=== PATIENT | female | born 1940 | race Caucasian/White ===

== ENCOUNTER 2017-03-22 14:28 | Inpatient (IN) ==
[2017-03-22] MEDS ORDERED: LEVOFLOXACIN INJ 750 MG in PREMIX 1 EACH IV STA (15:19)
[2017-03-22] MEDS ORDERED: FUROSEMIDE 100 MG/10 ML VIAL IV STA (15:19)
[2017-03-22] MEDS ORDERED: ONDANSETRON 4 MG/2 ML VIAL IV STA (15:19)
[2017-03-22] MEDS ORDERED: methylPREDNISolone SOD SUC 125 MG/2 ML VIAL IV STA (15:19)
[2017-03-22] MEDS ORDERED: ALBUTEROL 2.5 MG/3 ML NEB RESP TX SCH (15:30)
[2017-03-22] MEDS ORDERED: ALBUTEROL 2.5 MG/3 ML NEB RESP TX ONE (16:22)
[2017-03-22] MEDS ORDERED: LEVOFLOXACIN INJ 150 ML IV ONE (16:37)
[2017-03-22] MEDS ORDERED: ONDANSETRON 4 MG/2 ML VIAL ONE (16:37)
[2017-03-22] MEDS ORDERED: FUROSEMIDE 40 MG/4 ML VIAL ONE (16:37)
[2017-03-22] MEDS ORDERED: methylPREDNISolone SOD SUC 125 MG/2 ML VIAL ONE (16:38)
[2017-03-22 16:41] LABS: Apearance,Urine CLEAR (Clear); Bacteria,Urine Occasional /HPF (Few); Bilirubin,Urine Negative (Negative); Blood, Urine Negative (Negative); Glucose,Urine (UA) Negative (Negative); Ketones,Urine Negative (Negative); Mucus,Urine Occasional /LPF (Occasional); Nitrite,Urine Negative (Negative); Protein,Urine 30 MG/DL; RBC,Urine 1 /HPF (0-4); Urine Color Yellow (Yellow); Urine Specific Gravity 1.014 (1.001-1.035); Urine Urobilinogen < 2.0 EU/DL (0.2-1.0); WBC,Urine <1 /HPF (0-6)
[2017-03-22 17:33] LABS: Basophils % 0.3 % (0.0-0.8); Eosinophils # 0.1 10*3/uL (0.0-0.87); Eosinophils % 1.7 % (0.00-10.9); Hematocrit 31.9 VOL% (35.7-47.0); Hemoglobin 10.2 GM/DL (12.0-16.0); Immature Granulocytes % 0.5 %; Immature Granulocytes Absolute 0.03 #; Lymphocytes # 2.9 10*3/uL (1.4-4.0); Lymphocytes % 44.8 % (21.3-54.2); Mean Corpuscular Hemoglobin 30 PG (27-34); Mean Corpuscular Volume 95.2 FL (87-102); Mean Platelet Volume 11.4 FL (9.6-12.0); Monocytes # 0.3 10*3/uL (0.11-0.8); Monocytes % 4.7 % (1.7-12.7); Neutrophils # 3.1 10*3/uL (1.4-7.4); Platelet Count 158 T/CUMM (130-400); Red Blood Count 3.35 MC/CUMM (3.8-5.5); Red Cell Distribution Width 14.7 % (9.3-17.3); White Blood Count 6.4 T/CUMM (4-12)
[2017-03-22 17:44] LABS: PT Patient Result 10.8 SECS
[2017-03-22 17:49] LABS: Lactic Acid 1.6 MMOL/L (0.4-2.0)
[2017-03-22 17:50] LABS: Alanine Aminotransferase 24 U/L (13-56); Alkaline Phosphatase 101 U/L (45-117); Aspartate Amino Transferase 53 U/L (0-37); Bilirubin,Total < 0.39 MG/DL (0.2-1.0); Blood Urea Nitrogen 38 MG/DL (7-18); Calcium 7.2 MG/DL (8.5-10.1); Glucose 150 MG/DL (74-106); Osmolality,Calculated 284.8 MOS/KG (273-304); Potassium 2.9 MMOL/L (3.5-5.1); Sodium 137 MMOL/L (136-145); Total Protein 5.9 G/DL (6.4-8.3); Troponin I Only 0.022 NG/ML (0.00-0.045)
[2017-03-22 18:02] LABS: ABG Base Excess -8.5 MMOL/L (-2.5-2.5); ABG HCO3 15.2 MMOL/L (20-26); ABG Oxygen Saturation 97.1 % (95-100); ABG PCO2 26.3 MM HG (35-48); ABG PO2 93.8 MM HG (80-95)
[2017-03-22] MEDS ORDERED: GLUCAGON 1 MG VIAL IM PRN (18:40)
[2017-03-22] MEDS ORDERED: POTASSIUM CHLORIDE 20 MEQ TABLET PO STA (18:52)
[2017-03-22] MEDS ORDERED: ZALEPLON 5 MG CAPSULE PO PRN (19:35)
[2017-03-22] MEDS ORDERED: ONDANSETRON 4 MG/2 ML VIAL IV PRN (19:35)
[2017-03-22] MEDS ORDERED: POTASSIUM CHLORIDE 20 MEQ TABLET PO ONE (19:50)
[2017-03-22] MEDS ORDERED: INSULIN REGULAR 100 UNIT/ML ONE (21:06)
[2017-03-22] MEDS ORDERED: INSULIN REGULAR 100 UNIT/ML SUBCUT ONE (21:21)
[2017-03-22] MEDS ORDERED: ALBUTEROL 2.5 MG/3 ML NEB RESP TX PRN (22:35)
[2017-03-22] MEDS ORDERED: ACETAMINOPHEN 325 MG TABLET PO PRN (22:35)
[2017-03-22] MEDS: SODIUM CHLORIDE 0.9% 1,000 ML IV SCH (23:05)
[2017-03-23] MEDS: GABAPENTIN 100 MG CAPSULE PO SCH ×3 (01:52→21:28)
[2017-03-23] MEDS: MONTELUKAST 10 MG TABLET PO SCH ×2 (01:52→21:28)
[2017-03-23] MEDS: ZALEPLON 5 MG CAPSULE PO SCH ×2 (01:52→21:28)
[2017-03-23] MEDS: ALBUTEROL/IPRATROPIUM 3 ML NEB RESP TX SCH ×4 (05:10→20:53)
[2017-03-23 07:07] LABS: Basophils % 0.3 % (0.0-0.8); Hematocrit 31.1 VOL% (35.7-47.0); Hemoglobin 9.8 GM/DL (12.0-16.0); Immature Granulocytes % 0.8 %; Immature Granulocytes Absolute 0.03 #; Lymphocytes # 0.6 10*3/uL (1.4-4.0); Lymphocytes % 15.9 % (21.3-54.2); Mean Corpuscular HGB Conc 31.5 GM/DL (32-36); Mean Corpuscular Hemoglobin 30 PG (27-34); Mean Platelet Volume 11.6 FL (9.6-12.0); Monocytes # 0.1 10*3/uL (0.11-0.8); Monocytes % 2.4 % (1.7-12.7); Neutrophils % 80.6 % (38.7-73.9); Platelet Count 148 T/CUMM (130-400); Red Blood Count 3.31 MC/CUMM (3.8-5.5); Red Cell Distribution Width 14.7 % (9.3-17.3); White Blood Count 3.7 T/CUMM (4-12)
[2017-03-23 07:32] LABS: Calcium 7.7 MG/DL (8.5-10.1); Potassium 4.7 MMOL/L (3.5-5.1)
[2017-03-23] MEDS ORDERED: FUROSEMIDE 20 MG TABLET PO SCH (09:00)
[2017-03-23] MEDS ORDERED: CALCIUM (CITRATE) 200 MG TABLET PO SCH (09:00)
[2017-03-23] MEDS: CLINDAMYCIN INJ 600 MG in PREMIX 1 EACH IV SCH ×2 (10:03→17:34)
[2017-03-23] MEDS: ASPIRIN EC 81 MG TABLET PO SCH (10:03)
[2017-03-23] MEDS: amLODIPine 10 MG TABLET PO SCH (10:07)
[2017-03-23] MEDS: CLOPIDOGREL 75 MG TABLET PO SCH (10:07)
[2017-03-23] MEDS: CALCIUM (CARBONATE)/VITAMIN D 250 MG-125 UNIT TABLET PO SCH (10:07)
[2017-03-23] MEDS: CLORAZEPATE 3.75 MG TABLET PO SCH ×3 (10:08→21:28)
[2017-03-23] MEDS: CETIRIZINE 10 MG TABLET PO SCH (10:08)
[2017-03-23] MEDS: CILOSTAZOL 100 MG TABLET PO SCH (10:08)
[2017-03-23] MEDS: MECLIZINE 25 MG TABLET PO SCH (10:13)
[2017-03-23] MEDS: POTASSIUM CHLORIDE 10 MEQ TABLET PO SCH (10:14)
[2017-03-23] MEDS: PANTOPRAZOLE 40 MG TABLET PO SCH (10:14)
[2017-03-23] MEDS: SERTRALINE 100 MG TABLET PO SCH (10:15)
[2017-03-23] MEDS: hydrALAZINE 25 MG TABLET PO SCH (12:39)
[2017-03-23] MEDS: METOPROLOL SUCCINATE XL 50 MG TABLET PO SCH (12:40)
[2017-03-23] MEDS: SODIUM CHLORIDE 0.9% 1,000 ML IV SCH (15:44)
[2017-03-23] MEDS: SIMVASTATIN 20 MG TABLET PO SCH (18:21)
[2017-03-23] MEDS: LEVOFLOXACIN INJ 250 MG in PREMIX 1 EACH IV SCH (21:27)
[2017-03-24] MEDS: ALBUTEROL/IPRATROPIUM 3 ML NEB RESP TX SCH ×3 (01:16→13:17)
[2017-03-24] MEDS: CLINDAMYCIN INJ 600 MG in PREMIX 1 EACH IV SCH ×3 (02:10→17:14)
[2017-03-24] MEDS: ACETAMINOPHEN 325 MG TABLET PO PRN (04:19)
[2017-03-24] MEDS: MECLIZINE 25 MG TABLET PO SCH (09:31)
[2017-03-24] MEDS: ASPIRIN EC 81 MG TABLET PO SCH (09:32)
[2017-03-24] MEDS: POTASSIUM CHLORIDE 10 MEQ TABLET PO SCH (09:32)
[2017-03-24] MEDS: hydrALAZINE 25 MG TABLET PO SCH (09:32)
[2017-03-24] MEDS: GABAPENTIN 100 MG CAPSULE PO SCH ×2 (09:33→21:14)
[2017-03-24] MEDS: amLODIPine 10 MG TABLET PO SCH (09:33)
[2017-03-24] MEDS: CALCIUM (CARBONATE)/VITAMIN D 250 MG-125 UNIT TABLET PO SCH (09:33)
[2017-03-24] MEDS: CLOPIDOGREL 75 MG TABLET PO SCH (09:34)
[2017-03-24] MEDS: CILOSTAZOL 100 MG TABLET PO SCH (09:34)
[2017-03-24] MEDS: PANTOPRAZOLE 40 MG TABLET PO SCH (09:35)
[2017-03-24] MEDS: SERTRALINE 100 MG TABLET PO SCH (09:36)
[2017-03-24] MEDS: CLORAZEPATE 3.75 MG TABLET PO SCH ×3 (09:36→21:14)
[2017-03-24] MEDS: CETIRIZINE 10 MG TABLET PO SCH (09:36)
[2017-03-24 09:47] LABS: Calcium 7.7 MG/DL (8.5-10.1); Osmolality,Calculated 289.5 MOS/KG (273-304); Potassium 4.2 MMOL/L (3.5-5.1)
[2017-03-24] MEDS: METOPROLOL SUCCINATE XL 50 MG TABLET PO SCH (12:48)
[2017-03-24] MEDS ORDERED: LEVALBUTEROL 1.25 MG/3 ML NEB RESP TX PRN (16:21)
[2017-03-24] MEDS ORDERED: MAGNESIUM SULF RIDER 2 GM in PREMIX 1 EACH IV ONE (16:36)
[2017-03-24 16:42] LABS: ABG Base Excess -7.3 MMOL/L (-2.5-2.5); ABG HCO3 18.2 MMOL/L (20-26); ABG Oxygen Saturation 83.3 % (95-100); ABG PCO2 28.1 MM HG (35-48); ABG PO2 46.8 MM HG (80-95); ABG TCO2 15.1 MMOL/L (23-27); Allen Test Positive
[2017-03-24] MEDS ORDERED: SODIUM CHLORIDE 0.9% 1,000 ML IV SCH (17:30)
[2017-03-24 17:36] LABS: Calcium 7.9 MG/DL (8.5-10.1); Osmolality,Calculated 293.3 MOS/KG (273-304); Potassium 4.2 MMOL/L (3.5-5.1)
[2017-03-24] MEDS: SODIUM CHLORIDE 0.9% 1,000 ML IV SCH (17:57)
[2017-03-24] MEDS ORDERED: MIDAZOLAM 10 MG/2 ML VIAL ONE (18:15)
[2017-03-24] MEDS ORDERED: PROPOFOL 1,000 MG/100 ML BOTTLE IV ONE (18:26)
[2017-03-24] MEDS ORDERED: MIDAZOLAM 2 MG/2 ML VIAL IV ONE (18:29)
[2017-03-24] MEDS ORDERED: LIDOCAINE 2% 20 ML VIAL RESP TX ONE (18:29)
[2017-03-24] MEDS ORDERED: LIDOCAINE 1% 20 ML VIAL MISC INJ ONE (18:29)
[2017-03-24] MEDS ORDERED: FUROSEMIDE 40 MG/4 ML VIAL IV ONE ×2 (18:33→18:35)
[2017-03-24] MEDS: PROPOFOL 1,000 MG/100 ML BOTTLE IV SCH ×2 (19:02→21:00)
[2017-03-24] MEDS: SIMVASTATIN 20 MG TABLET PO SCH (19:02)
[2017-03-24] MEDS ORDERED: NOREPINEPHRINE 4 MG/4 ML VIAL IV ONE ×2 (19:12→19:13)
[2017-03-24 19:20] LABS: ABG Base Excess -9.3 MMOL/L (-2.5-2.5); ABG Oxygen Saturation 99.3 % (95-100); ABG PCO2 28.6 MM HG (35-48); ABG PH 7.337 (7.35-7.45); ABG TCO2 13.8 MMOL/L (23-27); Pt O2 Delivery Device Ventilator
[2017-03-24] MEDS: methylPREDNISolone SOD SUC 40 MG/1 ML VIAL IV SCH (19:21)
[2017-03-24] MEDS: NOREPINEPHRINE 16 MG in SODIUM CHLORIDE 0.9% 234 ML IV SCH (19:38)
[2017-03-24] MEDS: LEVOFLOXACIN INJ 250 MG in PREMIX 1 EACH IV SCH (21:14)
[2017-03-24] MEDS: MONTELUKAST 10 MG TABLET PO SCH (21:14)
[2017-03-24] MEDS: ZALEPLON 5 MG CAPSULE PO SCH (21:15)
[2017-03-24] MEDS: LEVALBUTEROL 1.25 MG/3 ML NEB RESP TX SCH (22:11)
[2017-03-25] MEDS: CLINDAMYCIN INJ 600 MG in PREMIX 1 EACH IV SCH ×3 (01:50→17:23)
[2017-03-25] MEDS: LEVALBUTEROL 1.25 MG/3 ML NEB RESP TX SCH ×4 (02:16→18:04)
[2017-03-25] MEDS: methylPREDNISolone SOD SUC 40 MG/1 ML VIAL IV SCH ×3 (03:50→18:44)
[2017-03-25] MEDS: PROPOFOL 1,000 MG/100 ML BOTTLE IV SCH ×8 (05:08→23:35)
[2017-03-25 05:56] LABS: Osmolality,Calculated 301.5 MOS/KG (273-304); Potassium 4.1 MMOL/L (3.5-5.1)
[2017-03-25 08:42] LABS: ABG Base Excess -9.8 MMOL/L (-2.5-2.5); ABG HCO3 16.6 MMOL/L (20-26); ABG Oxygen Saturation 95.8 % (95-100); ABG PH 7.284 (7.35-7.45); ABG PO2 81.5 MM HG (80-95); ABG TCO2 14.8 MMOL/L (23-27); Allen Test Positive; Pt O2 Delivery Device Ventilator
[2017-03-25] MEDS: MECLIZINE 25 MG TABLET PO SCH (09:56)
[2017-03-25] MEDS: hydrALAZINE 25 MG TABLET PO SCH (09:56)
[2017-03-25] MEDS: GABAPENTIN 100 MG CAPSULE PO SCH ×2 (09:57→21:10)
[2017-03-25] MEDS: ASPIRIN EC 81 MG TABLET PO SCH (09:57)
[2017-03-25] MEDS: CILOSTAZOL 100 MG TABLET PO SCH (09:57)
[2017-03-25] MEDS: amLODIPine 10 MG TABLET PO SCH (09:57)
[2017-03-25] MEDS: POTASSIUM CHLORIDE 10 MEQ TABLET PO SCH (09:57)
[2017-03-25] MEDS: CALCIUM (CARBONATE)/VITAMIN D 250 MG-125 UNIT TABLET PO SCH (09:57)
[2017-03-25] MEDS: CLOPIDOGREL 75 MG TABLET PO SCH (09:57)
[2017-03-25] MEDS: CLORAZEPATE 3.75 MG TABLET PO SCH ×3 (09:58→21:10)
[2017-03-25] MEDS: PANTOPRAZOLE 40 MG TABLET PO SCH (09:58)
[2017-03-25] MEDS: SERTRALINE 100 MG TABLET PO SCH (09:58)
[2017-03-25] MEDS: CETIRIZINE 10 MG TABLET PO SCH (09:58)
[2017-03-25] MEDS ORDERED: SODIUM BICARB INJ 150 MEQ in DEXTROSE 5% 1,000 ML IV SCH (10:30)
[2017-03-25] MEDS: METOPROLOL SUCCINATE XL 50 MG TABLET PO SCH (12:14)
[2017-03-25] MEDS ORDERED: DEXTROSE 50% 25 GM/50 ML VIAL IV PRN (12:16)
[2017-03-25] MEDS ORDERED: GLUCAGON 1 MG VIAL IM PRN (12:16)
[2017-03-25] MEDS ORDERED: INSULIN REGULAR 100 UNIT/ML ONE (13:39)
[2017-03-25] MEDS: SODIUM CHLORIDE 23.4% CONC INJ 38.5 MEQ, SODIUM BICARB INJ 100 MEQ in STERILE WATER INJ... IV SCH (14:00)
[2017-03-25] MEDS: INSULIN REGULAR 100 UNIT/ML SUBCUT SCH (17:24)
[2017-03-25] MEDS: NOREPINEPHRINE 16 MG in SODIUM CHLORIDE 0.9% 234 ML IV SCH (18:45)
[2017-03-25] MEDS: SIMVASTATIN 20 MG TABLET PO SCH (18:45)
[2017-03-25] MEDS: fentaNYL INJ 1,250 MCG in SODIUM CHLORIDE 0.9% 225 ML IV SCH (19:20)
[2017-03-25] MEDS: LEVOFLOXACIN INJ 250 MG in PREMIX 1 EACH IV SCH (21:09)
[2017-03-25] MEDS: MONTELUKAST 10 MG TABLET PO SCH (21:10)
[2017-03-25] MEDS: ZALEPLON 5 MG CAPSULE PO SCH (21:10)
[2017-03-26] MEDS: LEVALBUTEROL 1.25 MG/3 ML NEB RESP TX SCH ×2 (00:55→07:39)
[2017-03-26] MEDS: INSULIN REGULAR 100 UNIT/ML SUBCUT SCH ×4 (01:00→17:02)
[2017-03-26] MEDS: CLINDAMYCIN INJ 600 MG in PREMIX 1 EACH IV SCH ×3 (01:00→16:54)
[2017-03-26] MEDS: fentaNYL INJ 1,250 MCG in SODIUM CHLORIDE 0.9% 225 ML IV SCH ×5 (01:16→21:50)
[2017-03-26] MEDS: SODIUM CHLORIDE 23.4% CONC INJ 38.5 MEQ, SODIUM BICARB INJ 100 MEQ in STERILE WATER INJ... IV SCH ×3 (01:20→15:34)
[2017-03-26] MEDS: NOREPINEPHRINE 16 MG in SODIUM CHLORIDE 0.9% 234 ML IV SCH ×3 (02:10→18:53)
[2017-03-26] MEDS ORDERED: SODIUM CHLORIDE 0.9% 250 ML IV ONE (02:24)
[2017-03-26] MEDS: PROPOFOL 1,000 MG/100 ML BOTTLE IV SCH ×9 (02:30→22:50)
[2017-03-26] MEDS: methylPREDNISolone SOD SUC 40 MG/1 ML VIAL IV SCH ×3 (03:30→18:04)
[2017-03-26 03:40] LABS: ABG Base Excess -10.1 MMOL/L (-2.5-2.5); ABG HCO3 19.4 MMOL/L (20-26); ABG Oxygen Saturation 92.7 % (95-100); ABG PCO2 61.1 MM HG (35-48); ABG PO2 69.6 MM HG (80-95); ABG TCO2 21.3 MMOL/L (23-27); Allen Test Positive; Pt O2 Delivery Device Ventilator
[2017-03-26 04:23] LABS: Basophils % 0.1 % (0.0-0.8); Hematocrit 31.1 VOL% (35.7-47.0); Hemoglobin 10.1 GM/DL (12.0-16.0); Immature Granulocytes % 0.8 %; Immature Granulocytes Absolute 0.17 #; Lymphocytes # 0.5 10*3/uL (1.4-4.0); Lymphocytes % 2.5 % (21.3-54.2); Mean Corpuscular HGB Conc 32.5 GM/DL (32-36); Mean Corpuscular Hemoglobin 30 PG (27-34); Mean Corpuscular Volume 93.4 FL (87-102); Mean Platelet Volume 11.1 FL (9.6-12.0); Monocytes # 0.6 10*3/uL (0.11-0.8); Monocytes % 2.9 % (1.7-12.7); NRBC # 0.02 10*3/uL; Neutrophils # 19.2 10*3/uL (1.4-7.4); Neutrophils % 93.7 % (38.7-73.9); Platelet Count 266 T/CUMM (130-400); Red Blood Count 3.33 MC/CUMM (3.8-5.5); Red Cell Distribution Width 15.5 % (9.3-17.3); White Blood Count 20.5 T/CUMM (4-12)
[2017-03-26 04:51] LABS: Calcium 7.8 MG/DL (8.5-10.1); Osmolality,Calculated 301.5 MOS/KG (273-304); Potassium 3.6 MMOL/L (3.5-5.1)
[2017-03-26 05:08] LABS: ABG Base Excess -10.8 MMOL/L (-2.5-2.5); ABG HCO3 15.8 MMOL/L (20-26); ABG Oxygen Saturation 95.4 % (95-100); ABG PCO2 50.4 MM HG (35-48); ABG PO2 80.3 MM HG (80-95); ABG TCO2 16.9 MMOL/L (23-27); Allen Test Positive; Pt O2 Delivery Device Ventilator
[2017-03-26 05:10] LABS: Band Neutrophils 1 % (0-10); Lymphocytes 1 % (20-55); Segmented Neutrophils 96 % (50-85); Total Cells Counted 100
[2017-03-26 05:11] LABS: Anisocytosis 1+; Platelet Estimate Normal
[2017-03-26] MEDS ORDERED: SODIUM CHLORIDE 0.9% 500 ML IV ONE (09:30)
[2017-03-26 11:09] LABS: ABG Base Excess -11.1 MMOL/L (-2.5-2.5); ABG HCO3 15.7 MMOL/L (20-26); ABG Oxygen Saturation 98.5 % (95-100); ABG PCO2 50.8 MM HG (35-48); ABG TCO2 16.8 MMOL/L (23-27)
[2017-03-26 11:11] LABS: ABG PH 7.152 (7.35-7.45)
[2017-03-26] MEDS: CLORAZEPATE 3.75 MG TABLET PO SCH ×3 (12:00→21:29)
[2017-03-26] MEDS: ALBUTEROL/IPRATROPIUM 3 ML NEB RESP TX SCH ×2 (12:48→20:11)
[2017-03-26] MEDS: hydrALAZINE 25 MG TABLET PO SCH (15:31)
[2017-03-26] MEDS: MECLIZINE 25 MG TABLET PO SCH (15:31)
[2017-03-26] MEDS: ASPIRIN EC 81 MG TABLET PO SCH (15:31)
[2017-03-26] MEDS: GABAPENTIN 100 MG CAPSULE PO SCH ×2 (15:32→21:29)
[2017-03-26] MEDS: PANTOPRAZOLE 40 MG TABLET PO SCH (15:32)
[2017-03-26] MEDS: POTASSIUM CHLORIDE 10 MEQ TABLET PO SCH (15:32)
[2017-03-26] MEDS: amLODIPine 10 MG TABLET PO SCH (15:32)
[2017-03-26] MEDS: INSULIN GLARGINE 100 UNIT/ML SUBCUT SCH (15:32)
[2017-03-26] MEDS: CILOSTAZOL 100 MG TABLET PO SCH (15:32)
[2017-03-26] MEDS: CLOPIDOGREL 75 MG TABLET PO SCH (15:32)
[2017-03-26] MEDS: CALCIUM (CARBONATE)/VITAMIN D 250 MG-125 UNIT TABLET PO SCH (15:32)
[2017-03-26] MEDS: CETIRIZINE 10 MG TABLET PO SCH (15:33)
[2017-03-26] MEDS: SERTRALINE 100 MG TABLET PO SCH (15:33)
[2017-03-26] MEDS: METOPROLOL SUCCINATE XL 50 MG TABLET PO SCH (15:35)
[2017-03-26] MEDS: SIMVASTATIN 20 MG TABLET PO SCH (18:04)
[2017-03-26] MEDS: LEVOFLOXACIN INJ 250 MG in PREMIX 1 EACH IV SCH (21:29)
[2017-03-26] MEDS: MONTELUKAST 10 MG TABLET PO SCH (21:29)
[2017-03-26] MEDS: ZALEPLON 5 MG CAPSULE PO SCH (21:30)
[2017-03-27] MEDS: ALBUTEROL/IPRATROPIUM 3 ML NEB RESP TX SCH ×4 (00:09→19:56)
[2017-03-27] MEDS: INSULIN REGULAR 100 UNIT/ML SUBCUT SCH ×5 (00:40→23:59)
[2017-03-27] MEDS: CLINDAMYCIN INJ 600 MG in PREMIX 1 EACH IV SCH ×3 (00:40→17:49)
[2017-03-27] MEDS: PROPOFOL 1,000 MG/100 ML BOTTLE IV SCH ×6 (02:10→21:06)
[2017-03-27] MEDS: SODIUM CHLORIDE 23.4% CONC INJ 38.5 MEQ, SODIUM BICARB INJ 100 MEQ in STERILE WATER INJ... IV SCH (02:49)
[2017-03-27] MEDS: methylPREDNISolone SOD SUC 40 MG/1 ML VIAL IV SCH ×3 (02:50→18:07)
[2017-03-27 03:47] LABS: ABG Base Excess -10.3 MMOL/L (-2.5-2.5); ABG HCO3 16.2 MMOL/L (20-26); ABG Oxygen Saturation 92.7 % (95-100); ABG PCO2 55.3 MM HG (35-48); ABG PO2 72.1 MM HG (80-95)
[2017-03-27 03:49] LABS: ABG PH 7.145 (7.35-7.45)
[2017-03-27 05:24] LABS: Basophils % 0.1 % (0.0-0.8); Hematocrit 27.9 VOL% (35.7-47.0); Hemoglobin 8.8 GM/DL (12.0-16.0); Immature Granulocytes Absolute 0.18 #; Lymphocytes # 0.3 10*3/uL (1.4-4.0); Lymphocytes % 1.9 % (21.3-54.2); Mean Corpuscular HGB Conc 31.5 GM/DL (32-36); Mean Corpuscular Hemoglobin 30 PG (27-34); Mean Corpuscular Volume 94.6 FL (87-102); Mean Platelet Volume 10.9 FL (9.6-12.0); Monocytes # 0.6 10*3/uL (0.11-0.8); Monocytes % 3.3 % (1.7-12.7); NRBC # 0.04 10*3/uL; Neutrophils # 16.1 10*3/uL (1.4-7.4); Neutrophils % 93.7 % (38.7-73.9); Platelet Count 256 T/CUMM (130-400); Red Blood Count 2.95 MC/CUMM (3.8-5.5); Red Cell Distribution Width 15.8 % (9.3-17.3); White Blood Count 17.2 T/CUMM (4-12)
[2017-03-27 06:02] LABS: Calcium 7.5 MG/DL (8.5-10.1); Osmolality,Calculated 294.8 MOS/KG (273-304)
[2017-03-27] MEDS: fentaNYL INJ 1,250 MCG in SODIUM CHLORIDE 0.9% 225 ML IV SCH ×2 (06:18→14:46)
[2017-03-27 07:00] LABS: Band Neutrophils 1 % (0-10); Burr Cells Few; Lymphocytes 11 % (20-55); Macrocytosis 1+; Segmented Neutrophils 86 % (50-85); Total Cells Counted 100
[2017-03-27 07:53] LABS: ABG Base Excess -9.6 MMOL/L (-2.5-2.5); ABG HCO3 16.7 MMOL/L (20-26); ABG Oxygen Saturation 99.5 % (95-100); ABG PCO2 46.2 MM HG (35-48); ABG TCO2 17.2 MMOL/L (23-27)
[2017-03-27 07:56] LABS: ABG PH 7.202 (7.35-7.45)
[2017-03-27] MEDS: SODIUM BICARB INJ 150 MEQ in STERILE WATER INJ 850 ML IV SCH (08:53)
[2017-03-27] MEDS: INSULIN GLARGINE 100 UNIT/ML SUBCUT SCH (08:56)
[2017-03-27] MEDS: CILOSTAZOL 100 MG TABLET PO SCH (08:57)
[2017-03-27] MEDS: CLOPIDOGREL 75 MG TABLET PO SCH (08:57)
[2017-03-27] MEDS: PANTOPRAZOLE 40 MG TABLET PO SCH (08:57)
[2017-03-27] MEDS: CLORAZEPATE 3.75 MG TABLET PO SCH ×3 (08:57→20:30)
[2017-03-27] MEDS: GABAPENTIN 100 MG CAPSULE PO SCH (08:57)
[2017-03-27] MEDS: CALCIUM (CARBONATE)/VITAMIN D 250 MG-125 UNIT TABLET PO SCH (08:57)
[2017-03-27] MEDS: SERTRALINE 100 MG TABLET PO SCH (08:57)
[2017-03-27] MEDS: ASPIRIN EC 81 MG TABLET PO SCH (08:57)
[2017-03-27] MEDS: CETIRIZINE 10 MG TABLET PO SCH (08:57)
[2017-03-27] MEDS: hydrALAZINE 25 MG TABLET PO SCH (08:58)
[2017-03-27] MEDS: amLODIPine 10 MG TABLET PO SCH (08:58)
[2017-03-27] MEDS: MECLIZINE 25 MG TABLET PO SCH (08:58)
[2017-03-27 10:50] LABS: ABG Base Excess -9.2 MMOL/L (-2.5-2.5); ABG Oxygen Saturation 99.2 % (95-100); ABG PCO2 49.8 MM HG (35-48)
[2017-03-27 10:53] LABS: ABG PH 7.187 (7.35-7.45)
[2017-03-27] MEDS: METOPROLOL SUCCINATE XL 50 MG TABLET PO SCH (12:31)
[2017-03-27] MEDS: NOREPINEPHRINE 16 MG in SODIUM CHLORIDE 0.9% 234 ML IV SCH (13:44)
[2017-03-27] MEDS: SIMVASTATIN 20 MG TABLET PO SCH (18:07)
[2017-03-27] MEDS: LEVOFLOXACIN INJ 250 MG in PREMIX 1 EACH IV SCH (20:28)
[2017-03-27] MEDS: MONTELUKAST 10 MG TABLET PO SCH (20:30)
[2017-03-27] MEDS: ZALEPLON 5 MG CAPSULE PO SCH (21:10)
[2017-03-27] MEDS: GABAPENTIN 50 MG/ML 30 ML/BOTTLE PO SCH (22:26)
[2017-03-28] MEDS: ALBUTEROL/IPRATROPIUM 3 ML NEB RESP TX SCH ×4 (00:42→19:28)
[2017-03-28] MEDS: SODIUM BICARB INJ 150 MEQ in STERILE WATER INJ 850 ML IV SCH ×2 (00:45→13:13)
[2017-03-28] MEDS: CLINDAMYCIN INJ 600 MG in PREMIX 1 EACH IV SCH ×3 (00:46→16:50)
[2017-03-28] MEDS ORDERED: VECURONIUM 10 MG VIAL IV ONE ×2 (03:23→03:25)
[2017-03-28] MEDS ORDERED: ETOMIDATE 20 MG/10 ML VIAL IV ONE ×2 (03:24→03:25)
[2017-03-28 04:36] LABS: ABG Base Excess -5.3 MMOL/L (-2.5-2.5); ABG Oxygen Saturation 94.5 % (95-100); ABG PCO2 49.8 MM HG (35-48); ABG PH 7.252 (7.35-7.45); ABG PO2 79.4 MM HG (80-95); ABG TCO2 20.6 MMOL/L (23-27); Allen Test Positive; Pt O2 Delivery Device Ventilator
[2017-03-28] MEDS: methylPREDNISolone SOD SUC 40 MG/1 ML VIAL IV SCH ×3 (04:38→19:33)
[2017-03-28 05:10] LABS: Basophils % 0.1 % (0.0-0.8); Hematocrit 26.9 VOL% (35.7-47.0); Hemoglobin 8.9 GM/DL (12.0-16.0); Immature Granulocytes % 1.1 %; Immature Granulocytes Absolute 0.17 #; Lymphocytes # 0.3 10*3/uL (1.4-4.0); Lymphocytes % 1.9 % (21.3-54.2); Mean Corpuscular HGB Conc 33.1 GM/DL (32-36); Mean Corpuscular Hemoglobin 30 PG (27-34); Mean Corpuscular Volume 89.7 FL (87-102); Mean Platelet Volume 10.8 FL (9.6-12.0); Monocytes # 0.5 10*3/uL (0.11-0.8); Monocytes % 3.1 % (1.7-12.7); NRBC # 0.05 10*3/uL; Neutrophils # 14.7 10*3/uL (1.4-7.4); Neutrophils % 93.8 % (38.7-73.9); Platelet Count 236 T/CUMM (130-400); Red Cell Distribution Width 15.4 % (9.3-17.3); White Blood Count 15.6 T/CUMM (4-12)
[2017-03-28 05:39] LABS: Calcium 6.8 MG/DL (8.5-10.1); Osmolality,Calculated 289.4 MOS/KG (273-304); Potassium 4.1 MMOL/L (3.5-5.1)
[2017-03-28 05:40] LABS: Band Neutrophils 3 % (0-10); Lymphocytes 4 % (20-55); Segmented Neutrophils 92 % (50-85); Total Cells Counted 100
[2017-03-28 05:41] LABS: Anisocytosis 1+; Platelet Estimate Normal
[2017-03-28] MEDS: INSULIN REGULAR 100 UNIT/ML SUBCUT SCH ×3 (07:08→18:59)
[2017-03-28] MEDS: GABAPENTIN 100 MG CAPSULE PO SCH (07:09)
[2017-03-28] MEDS: NOREPINEPHRINE 16 MG in SODIUM CHLORIDE 0.9% 234 ML IV SCH ×2 (07:42→22:28)
[2017-03-28] MEDS: INSULIN GLARGINE 100 UNIT/ML SUBCUT SCH (08:56)
[2017-03-28] MEDS: hydrALAZINE 25 MG TABLET PO SCH (08:56)
[2017-03-28] MEDS: CILOSTAZOL 100 MG TABLET PO SCH (09:12)
[2017-03-28] MEDS: amLODIPine 10 MG TABLET PO SCH (09:13)
[2017-03-28] MEDS: PANTOPRAZOLE 40 MG TABLET PO SCH (09:13)
[2017-03-28] MEDS: CALCIUM (CARBONATE)/VITAMIN D 250 MG-125 UNIT TABLET PO SCH (09:13)
[2017-03-28] MEDS: CLOPIDOGREL 75 MG TABLET PO SCH (09:13)
[2017-03-28] MEDS: ASPIRIN EC 81 MG TABLET PO SCH (09:13)
[2017-03-28] MEDS: GABAPENTIN 50 MG/ML 30 ML/BOTTLE PO SCH ×2 (09:13→22:28)
[2017-03-28] MEDS: CLORAZEPATE 3.75 MG TABLET PO SCH ×3 (09:13→22:27)
[2017-03-28] MEDS: SERTRALINE 100 MG TABLET PO SCH (09:13)
[2017-03-28] MEDS: CETIRIZINE 10 MG TABLET PO SCH (09:13)
[2017-03-28] MEDS: MECLIZINE 25 MG TABLET PO SCH (09:14)
[2017-03-28] MEDS: METOPROLOL SUCCINATE XL 50 MG TABLET PO SCH (13:13)
[2017-03-28] MEDS ORDERED: FUROSEMIDE 40 MG/4 ML VIAL IV ONE (15:30)
[2017-03-28] MEDS: PROPOFOL 1,000 MG/100 ML BOTTLE IV SCH ×2 (15:32→22:29)
[2017-03-28 16:10] LABS: ABG Base Excess -1.7 MMOL/L (-2.5-2.5); ABG HCO3 22.9 MMOL/L (20-26); ABG Oxygen Saturation 90.9 % (95-100); ABG PCO2 52.4 MM HG (35-48); ABG PH 7.291 (7.35-7.45); ABG PO2 68.6 MM HG (80-95); ABG TCO2 23.7 MMOL/L (23-27); Pt O2 Delivery Device Ventilator
[2017-03-28] MEDS: fentaNYL INJ 1,250 MCG in SODIUM CHLORIDE 0.9% 225 ML IV SCH (16:53)
[2017-03-28] MEDS: SIMVASTATIN 20 MG TABLET PO SCH (19:34)
[2017-03-28] MEDS: MONTELUKAST 10 MG TABLET PO SCH (22:27)
[2017-03-28] MEDS: ZALEPLON 5 MG CAPSULE PO SCH (22:28)
[2017-03-28] MEDS: LEVOFLOXACIN INJ 250 MG in PREMIX 1 EACH IV SCH (22:28)
[2017-03-29] MEDS: DEXTROSE 50% 25 GM/50 ML VIAL IV PRN ×2 (00:25→17:09)
[2017-03-29] MEDS: INSULIN REGULAR 100 UNIT/ML SUBCUT SCH ×4 (00:54→17:10)
[2017-03-29] MEDS: ALBUTEROL/IPRATROPIUM 3 ML NEB RESP TX SCH ×6 (00:55→23:38)
[2017-03-29] MEDS: SODIUM BICARB INJ 150 MEQ in STERILE WATER INJ 850 ML IV SCH ×3 (02:12→15:44)
[2017-03-29] MEDS: CLINDAMYCIN INJ 600 MG in PREMIX 1 EACH IV SCH ×3 (02:12→17:10)
[2017-03-29] MEDS: methylPREDNISolone SOD SUC 40 MG/1 ML VIAL IV SCH ×3 (02:13→19:10)
[2017-03-29 03:47] LABS: ABG Base Excess 2.1 MMOL/L (-2.5-2.5); ABG HCO3 27.4 MMOL/L (20-26); ABG Oxygen Saturation 97.1 % (95-100); ABG PCO2 46.6 MM HG (35-48); ABG PH 7.387 (7.35-7.45); ABG PO2 101.1 MM HG (80-95); ABG TCO2 28.8 MMOL/L (23-27)
[2017-03-29] MEDS ORDERED: ALBUTEROL/IPRATROPIUM 3 ML NEB RESP TX PRN (04:52)
[2017-03-29 05:34] LABS: Basophils % 0.1 % (0.0-0.8); Hematocrit 22.8 VOL% (35.7-47.0); Hemoglobin 7.8 GM/DL (12.0-16.0); Immature Granulocytes % 2.2 %; Lymphocytes # 0.1 10*3/uL (1.4-4.0); Lymphocytes % 0.8 % (21.3-54.2); Mean Corpuscular HGB Conc 34.2 GM/DL (32-36); Mean Corpuscular Hemoglobin 30 PG (27-34); Mean Corpuscular Volume 86.4 FL (87-102); Mean Platelet Volume 10.6 FL (9.6-12.0); Monocytes # 0.2 10*3/uL (0.11-0.8); Monocytes % 1.2 % (1.7-12.7); NRBC # 0.04 10*3/uL; Neutrophils # 17.6 10*3/uL (1.4-7.4); Neutrophils % 95.7 % (38.7-73.9); Platelet Count 186 T/CUMM (130-400); Red Blood Count 2.64 MC/CUMM (3.8-5.5); Red Cell Distribution Width 14.6 % (9.3-17.3); White Blood Count 18.4 T/CUMM (4-12)
[2017-03-29 05:53] LABS: Band Neutrophils 2 % (0-10); Lymphocytes 2 % (20-55); Segmented Neutrophils 95 % (50-85); Total Cells Counted 100
[2017-03-29 05:54] LABS: Hypochromasia 1+; Microcytosis Slight; Platelet Estimate Adequate
[2017-03-29 06:39] LABS: Calcium 5.9 MG/DL (8.5-10.1); Osmolality,Calculated 292.2 MOS/KG (273-304); Potassium 3.7 MMOL/L (3.5-5.1); Prealbumin 8.1 MG/DL (20-40)
[2017-03-29 08:06] LABS: ABG Base Excess 3.5 MMOL/L (-2.5-2.5); ABG HCO3 29.4 MMOL/L (20-26); ABG Oxygen Saturation 72.1 % (95-100); ABG PCO2 52.4 MM HG (35-48); ABG PH 7.367 (7.35-7.45); ABG PO2 36.8 MM HG (80-95)
[2017-03-29] MEDS: CLOPIDOGREL 75 MG TABLET PO SCH (08:12)
[2017-03-29] MEDS: ASPIRIN EC 81 MG TABLET PO SCH (08:12)
[2017-03-29] MEDS ORDERED: SODIUM CHLORIDE 0.9% 1,000 ML IV PRN (08:19)
[2017-03-29] MEDS: CILOSTAZOL 100 MG TABLET PO SCH (08:44)
[2017-03-29] MEDS: CALCIUM (CARBONATE)/VITAMIN D 250 MG-125 UNIT TABLET PO SCH (08:44)
[2017-03-29] MEDS: INSULIN GLARGINE 100 UNIT/ML SUBCUT SCH (08:44)
[2017-03-29] MEDS: GABAPENTIN 50 MG/ML 30 ML/BOTTLE PO SCH ×2 (08:44→21:06)
[2017-03-29] MEDS: CETIRIZINE 10 MG TABLET PO SCH (08:45)
[2017-03-29] MEDS: CLORAZEPATE 3.75 MG TABLET PO SCH ×3 (08:45→21:06)
[2017-03-29] MEDS: MECLIZINE 25 MG TABLET PO SCH (08:45)
[2017-03-29] MEDS: PANTOPRAZOLE 40 MG TABLET PO SCH ×2 (08:45→09:22)
[2017-03-29] MEDS: SERTRALINE 100 MG TABLET PO SCH (08:45)
[2017-03-29] MEDS ORDERED: NOREPINEPHRINE 4 MG/4 ML VIAL IV ONE (09:05)
[2017-03-29] MEDS: amLODIPine 10 MG TABLET PO SCH (09:22)
[2017-03-29] MEDS: hydrALAZINE 25 MG TABLET PO SCH (09:22)
[2017-03-29] MEDS: PROPOFOL 1,000 MG/100 ML BOTTLE IV SCH ×5 (10:34→21:07)
[2017-03-29] MEDS: METOPROLOL SUCCINATE XL 50 MG TABLET PO SCH (11:50)
[2017-03-29] MEDS ORDERED: VANCOMYCIN 5,000 MG VIAL IV ONE (12:30)
[2017-03-29] MEDS ORDERED: VANCOMYCIN INJ 750 MG in SODIUM CHLORIDE 0.9% 150 ML IV PRN (12:35)
[2017-03-29 14:25] LABS: Hepatitis B Core IgM Quant 0.09 Index; Hepatitis B Core IgM Result Negative (Negative); Hepatitis B Surface Ag Quant < 0.10 Index; Hepatitis B Surface Ag Result Negative (Negative); Hepatitis C Virus Ab Quant 0.17 Index; Hepatitis C Virus Ab Result Negative (Negative)
[2017-03-29] MEDS: VECURONIUM 10 MG VIAL IV PRN (14:30)
[2017-03-29] MEDS ORDERED: VANCOMYCIN INJ 1,750 MG in SODIUM CHLORIDE 0.9% 500 ML IV ONE (14:30)
[2017-03-29 14:31] LABS: Hepatitis A Ab IgM Result Positive (Negative)
[2017-03-29] MEDS: MEROPENEM 500 MG in SYRINGE 1 EACH IV SCH (15:44)
[2017-03-29] MEDS: fentaNYL INJ 1,250 MCG in SODIUM CHLORIDE 0.9% 225 ML IV SCH (18:12)
[2017-03-29] MEDS: SIMVASTATIN 20 MG TABLET PO SCH (18:13)
[2017-03-29] MEDS: NOREPINEPHRINE 16 MG in SODIUM CHLORIDE 0.9% 234 ML IV SCH (19:57)
[2017-03-29] MEDS: MONTELUKAST 10 MG TABLET PO SCH (21:06)
[2017-03-29] MEDS: ZALEPLON 5 MG CAPSULE PO SCH (21:06)
[2017-03-29] MEDS: LEVOFLOXACIN INJ 250 MG in PREMIX 1 EACH IV SCH (21:06)
[2017-03-30] MEDS: INSULIN REGULAR 100 UNIT/ML SUBCUT SCH ×4 (00:16→17:25)
[2017-03-30] MEDS: CLINDAMYCIN INJ 600 MG in PREMIX 1 EACH IV SCH ×3 (00:28→17:03)
[2017-03-30] MEDS: PROPOFOL 1,000 MG/100 ML BOTTLE IV SCH ×4 (01:35→20:30)
[2017-03-30] MEDS: fentaNYL INJ 1,250 MCG in SODIUM CHLORIDE 0.9% 225 ML IV SCH ×4 (02:13→22:40)
[2017-03-30] MEDS: ALBUTEROL/IPRATROPIUM 3 ML NEB RESP TX SCH ×6 (03:31→23:45)
[2017-03-30 03:37] LABS: ABG Base Excess 3.3 MMOL/L (-2.5-2.5); ABG HCO3 27.4 MMOL/L (20-26); ABG Oxygen Saturation 99.5 % (95-100); ABG PCO2 60.9 MM HG (35-48); ABG PH 7.311 (7.35-7.45); ABG TCO2 28.5 MMOL/L (23-27); Allen Test Positive; Pt O2 Delivery Device Ventilator
[2017-03-30] MEDS: methylPREDNISolone SOD SUC 40 MG/1 ML VIAL IV SCH ×3 (04:00→18:36)
[2017-03-30 05:09] LABS: Basophils % 0.1 % (0.0-0.8); Hematocrit 26.6 VOL% (35.7-47.0); Hemoglobin 9.2 GM/DL (12.0-16.0); Immature Granulocytes % 4.7 %; Immature Granulocytes Absolute 0.64 #; Lymphocytes # 0.3 10*3/uL (1.4-4.0); Lymphocytes % 1.9 % (21.3-54.2); Mean Corpuscular HGB Conc 34.6 GM/DL (32-36); Mean Corpuscular Hemoglobin 30 PG (27-34); Mean Corpuscular Volume 86.4 FL (87-102); Mean Platelet Volume 10.7 FL (9.6-12.0); Monocytes # 0.2 10*3/uL (0.11-0.8); Monocytes % 1.1 % (1.7-12.7); NRBC # 0.02 10*3/uL; Neutrophils # 12.5 10*3/uL (1.4-7.4); Neutrophils % 92.2 % (38.7-73.9); Platelet Count 161 T/CUMM (130-400); Red Blood Count 3.08 MC/CUMM (3.8-5.5); Red Cell Distribution Width 14.9 % (9.3-17.3); White Blood Count 13.5 T/CUMM (4-12)
[2017-03-30 05:43] LABS: Band Neutrophils 3 % (0-10); Hypochromasia 1+; Lymphocytes 2 % (20-55); Microcytosis Slight; Myelocytes 1 %; Segmented Neutrophils 92 % (50-85); Total Cells Counted 100
[2017-03-30 05:44] LABS: Platelet Estimate Adequate
[2017-03-30 05:48] LABS: Calcium 6.3 MG/DL (8.5-10.1); Osmolality,Calculated 287.1 MOS/KG (273-304); Potassium 3.8 MMOL/L (3.5-5.1)
[2017-03-30 05:59] LABS: Calcium 6.2 MG/DL (8.5-10.1); Osmolality,Calculated 285.1 MOS/KG (273-304); Potassium 3.8 MMOL/L (3.5-5.1); Prealbumin 7.3 MG/DL (20-40)
[2017-03-30 07:04] LABS: Hepatitis A Ab IgM Quant 2.14 Index
[2017-03-30 07:34] LABS: Albumin 1.7 G/DL (3.4-5.0); Bilirubin,Total 0.7 MG/DL (0.2-1.0); Calcium 6.4 MG/DL (8.5-10.1); Osmolality,Calculated 282.4 MOS/KG (273-304); Potassium 3.8 MMOL/L (3.5-5.1); Total Protein 5.1 G/DL (6.4-8.3)
[2017-03-30] MEDS: MECLIZINE 25 MG TABLET PO SCH (08:21)
[2017-03-30] MEDS: amLODIPine 10 MG TABLET PO SCH ×2 (08:21→11:28)
[2017-03-30] MEDS: GABAPENTIN 50 MG/ML 30 ML/BOTTLE PO SCH ×2 (08:21→20:30)
[2017-03-30] MEDS: ASPIRIN EC 81 MG TABLET PO SCH ×2 (08:21→11:28)
[2017-03-30] MEDS: CALCIUM (CARBONATE)/VITAMIN D 250 MG-125 UNIT TABLET PO SCH (08:21)
[2017-03-30] MEDS: hydrALAZINE 25 MG TABLET PO SCH ×2 (08:21→11:27)
[2017-03-30] MEDS: INSULIN GLARGINE 100 UNIT/ML SUBCUT SCH (08:21)
[2017-03-30] MEDS: CLOPIDOGREL 75 MG TABLET PO SCH ×2 (08:22→11:28)
[2017-03-30] MEDS: SERTRALINE 100 MG TABLET PO SCH (08:22)
[2017-03-30] MEDS: CLORAZEPATE 3.75 MG TABLET PO SCH ×2 (08:22→15:02)
[2017-03-30] MEDS: CILOSTAZOL 100 MG TABLET PO SCH ×2 (08:22→11:27)
[2017-03-30] MEDS: PANTOPRAZOLE 40 MG TABLET PO SCH (08:22)
[2017-03-30] MEDS: CETIRIZINE 10 MG TABLET PO SCH (08:22)
[2017-03-30 08:28] LABS: Allen Test Positive; Pt O2 Delivery Device Ventilator
[2017-03-30 08:30] LABS: ABG Base Excess 0.3 MMOL/L (-2.5-2.5); ABG HCO3 24.7 MMOL/L (20-26); ABG Oxygen Saturation 97.3 % (95-100); ABG PCO2 59.1 MM HG (35-48); ABG PH 7.284 (7.35-7.45); ABG TCO2 25.8 MMOL/L (23-27)
[2017-03-30] MEDS ORDERED: SKIN HEALING OINT (AQUAPHOR) 50 GM TUBE TOP PRN (09:42)
[2017-03-30] MEDS: METOPROLOL SUCCINATE XL 50 MG TABLET PO SCH (11:31)
[2017-03-30] MEDS ORDERED: VANCOMYCIN INJ 750 MG in SODIUM CHLORIDE 0.9% 150 ML IV ONE (15:00)
[2017-03-30] MEDS: MEROPENEM 500 MG in SYRINGE 1 EACH IV SCH (17:03)
[2017-03-30] MEDS: hydrALAZINE 20 MG/1 ML VIAL IV PRN (18:35)
[2017-03-30] MEDS: LEVOFLOXACIN INJ 250 MG in PREMIX 1 EACH IV SCH (20:30)
[2017-03-30] MEDS: MONTELUKAST 10 MG TABLET PO SCH (20:30)
[2017-03-30] MEDS: SIMVASTATIN 20 MG TABLET PO SCH (20:30)
[2017-03-30] MEDS: NOREPINEPHRINE 16 MG in SODIUM CHLORIDE 0.9% 234 ML IV SCH (20:31)
[2017-03-30] MEDS: VECURONIUM 10 MG VIAL IV PRN (20:48)
[2017-03-31] MEDS: NOREPINEPHRINE 16 MG in SODIUM CHLORIDE 0.9% 234 ML IV SCH (00:04)
[2017-03-31] MEDS: INSULIN REGULAR 100 UNIT/ML SUBCUT SCH ×4 (00:10→18:11)
[2017-03-31] MEDS: PROPOFOL 1,000 MG/100 ML BOTTLE IV SCH ×7 (00:15→21:47)
[2017-03-31] MEDS: CLINDAMYCIN INJ 600 MG in PREMIX 1 EACH IV SCH ×3 (01:07→17:55)
[2017-03-31] MEDS: methylPREDNISolone SOD SUC 40 MG/1 ML VIAL IV SCH ×3 (03:39→18:12)
[2017-03-31 05:08] LABS: Basophils % 0.2 % (0.0-0.8); Hematocrit 30.1 VOL% (35.7-47.0); Hemoglobin 10.3 GM/DL (12.0-16.0); Immature Granulocytes % 5.9 %; Immature Granulocytes Absolute 1.14 #; Lymphocytes # 0.3 10*3/uL (1.4-4.0); Lymphocytes % 1.5 % (21.3-54.2); Mean Corpuscular HGB Conc 34.2 GM/DL (32-36); Mean Corpuscular Hemoglobin 31 PG (27-34); Mean Corpuscular Volume 89.6 FL (87-102); Mean Platelet Volume 10.4 FL (9.6-12.0); Monocytes # 0.4 10*3/uL (0.11-0.8); Monocytes % 1.8 % (1.7-12.7); NRBC # 0.09 10*3/uL; Neutrophils # 17.5 10*3/uL (1.4-7.4); Neutrophils % 90.6 % (38.7-73.9); Platelet Count 219 T/CUMM (130-400); Red Blood Count 3.36 MC/CUMM (3.8-5.5); Red Cell Distribution Width 15.9 % (9.3-17.3); White Blood Count 19.4 T/CUMM (4-12)
[2017-03-31 05:36] LABS: Allen Test Positive; Pt O2 Delivery Device Ventilator
[2017-03-31 05:37] LABS: ABG Base Excess -0.5 MMOL/L (-2.5-2.5); ABG Oxygen Saturation 98.1 % (95-100); ABG PH 7.215 (7.35-7.45)
[2017-03-31 05:41] LABS: Albumin 1.7 G/DL (3.4-5.0); Bilirubin,Total 0.6 MG/DL (0.2-1.0); Calcium 6.8 MG/DL (8.5-10.1); Osmolality,Calculated 279.1 MOS/KG (273-304); Potassium 3.8 MMOL/L (3.5-5.1); Total Protein 5.6 G/DL (6.4-8.3)
[2017-03-31 05:42] LABS: ABG PCO2 71.9 MM HG (35-48)
[2017-03-31 05:52] LABS: Band Neutrophils 1 % (0-10); Giant Platelets Few; Hypochromasia Slight; Lymphocytes 2 % (20-55); Ovalocytes Slight; Platelet Estimate Adequate; Segmented Neutrophils 96 % (50-85); Total Cells Counted 100
[2017-03-31 05:53] LABS: Microcytosis Slight
[2017-03-31] MEDS: ALBUTEROL/IPRATROPIUM 3 ML NEB RESP TX SCH ×6 (06:08→23:02)
[2017-03-31] MEDS: fentaNYL INJ 1,250 MCG in SODIUM CHLORIDE 0.9% 225 ML IV SCH ×2 (06:40→15:33)
[2017-03-31] MEDS: CALCIUM (CARBONATE)/VITAMIN D 250 MG-125 UNIT TABLET PO SCH (09:11)
[2017-03-31] MEDS: MECLIZINE 25 MG TABLET PO SCH (09:11)
[2017-03-31] MEDS: CILOSTAZOL 100 MG TABLET PO SCH (09:11)
[2017-03-31] MEDS: PANTOPRAZOLE 40 MG TABLET PO SCH (09:11)
[2017-03-31] MEDS: GABAPENTIN 50 MG/ML 30 ML/BOTTLE PO SCH ×2 (09:11→21:48)
[2017-03-31] MEDS: CETIRIZINE 10 MG TABLET PO SCH (09:11)
[2017-03-31] MEDS: amLODIPine 10 MG TABLET PO SCH (09:11)
[2017-03-31] MEDS: hydrALAZINE 25 MG TABLET PO SCH (09:11)
[2017-03-31] MEDS: ASPIRIN EC 81 MG TABLET PO SCH (09:12)
[2017-03-31] MEDS: INSULIN GLARGINE 100 UNIT/ML SUBCUT SCH (09:12)
[2017-03-31] MEDS: SODIUM BICARB IV SCH ×2 (09:42→21:47)
[2017-03-31] MEDS: STERILE WATER IV SCH ×2 (09:42→21:47)
[2017-03-31 10:22] LABS: ABG Base Excess -1.8 MMOL/L (-2.5-2.5); ABG HCO3 22.8 MMOL/L (20-26); ABG Oxygen Saturation 94.4 % (95-100); ABG PCO2 60.6 MM HG (35-48); ABG PH 7.248 (7.35-7.45); ABG PO2 79.5 MM HG (80-95); ABG TCO2 24.6 MMOL/L (23-27); Pt O2 Delivery Device Ventilator
[2017-03-31] MEDS: SERTRALINE 100 MG TABLET PO SCH (11:25)
[2017-03-31] MEDS: METOPROLOL SUCCINATE XL 50 MG TABLET PO SCH (12:32)
[2017-03-31] MEDS: CLOPIDOGREL 75 MG TABLET PO SCH (15:24)
[2017-03-31] MEDS: VECURONIUM 10 MG VIAL IV PRN (15:34)
[2017-03-31] MEDS: MEROPENEM 500 MG in SYRINGE 1 EACH IV SCH (17:55)
[2017-03-31] MEDS: SIMVASTATIN 20 MG TABLET PO SCH (18:12)
[2017-03-31] MEDS: LEVOFLOXACIN INJ 250 MG in PREMIX 1 EACH IV SCH (21:48)
[2017-03-31] MEDS: SODIUM BICARB INJ 50 MEQ in SODIUM CHLORIDE 0.45% 1,000 ML IV SCH (21:48)
[2017-03-31] MEDS: MONTELUKAST 10 MG TABLET PO SCH (21:48)
[2017-04-01] MEDS: fentaNYL INJ 1,250 MCG in SODIUM CHLORIDE 0.9% 225 ML IV SCH ×3 (00:58→19:19)
[2017-04-01] MEDS: NOREPINEPHRINE 16 MG in SODIUM CHLORIDE 0.9% 234 ML IV SCH ×2 (00:59→21:57)
[2017-04-01] MEDS: INSULIN REGULAR 100 UNIT/ML SUBCUT SCH ×5 (01:00→23:41)
[2017-04-01] MEDS: CLINDAMYCIN INJ 600 MG in PREMIX 1 EACH IV SCH ×3 (01:46→16:25)
[2017-04-01] MEDS: methylPREDNISolone SOD SUC 40 MG/1 ML VIAL IV SCH ×3 (02:00→19:27)
[2017-04-01] MEDS: ALBUTEROL/IPRATROPIUM 3 ML NEB RESP TX SCH ×5 (02:45→21:10)
[2017-04-01 04:02] LABS: ABG Base Excess -2.8 MMOL/L (-2.5-2.5); ABG HCO3 24.4 MMOL/L (20-26); ABG Oxygen Saturation 92.7 % (95-100); ABG PH 7.273 (7.35-7.45); ABG PO2 71.2 MM HG (80-95); ABG TCO2 26.1 MMOL/L (23-27); Allen Test Positive; Pt O2 Delivery Device Ventilator
[2017-04-01 07:08] LABS: Calcium 6.7 MG/DL (8.5-10.1); Osmolality,Calculated 280.9 MOS/KG (273-304); Potassium 4.5 MMOL/L (3.5-5.1)
[2017-04-01 07:15] LABS: Basophils % 0.2 % (0.0-0.8); Hematocrit 29.3 VOL% (35.7-47.0); Hemoglobin 9.9 GM/DL (12.0-16.0); Immature Granulocytes % 4.7 %; Immature Granulocytes Absolute 1.12 #; Lymphocytes # 0.3 10*3/uL (1.4-4.0); Lymphocytes % 1.1 % (21.3-54.2); Mean Corpuscular HGB Conc 33.8 GM/DL (32-36); Mean Corpuscular Hemoglobin 31 PG (27-34); Mean Corpuscular Volume 90.2 FL (87-102); Monocytes # 0.3 10*3/uL (0.11-0.8); Monocytes % 1.4 % (1.7-12.7); NRBC # 0.05 10*3/uL; Neutrophils % 92.6 % (38.7-73.9); Platelet Count 206 T/CUMM (130-400); Red Blood Count 3.25 MC/CUMM (3.8-5.5); Red Cell Distribution Width 15.6 % (9.3-17.3); White Blood Count 23.8 T/CUMM (4-12)
[2017-04-01] MEDS: SODIUM BICARB INJ 50 MEQ in SODIUM CHLORIDE 0.45% 1,000 ML IV SCH ×3 (07:33→21:42)
[2017-04-01] MEDS: PROPOFOL 1,000 MG/100 ML BOTTLE IV SCH ×7 (07:34→23:43)
[2017-04-01 08:32] LABS: Band Neutrophils 2 % (0-10); Lymphocytes 2 % (20-55); Metamyelocytes 1 %; Myelocytes 1 %; Segmented Neutrophils 93 % (50-85); Total Cells Counted 100
[2017-04-01 08:33] LABS: Microcytosis Slight; Platelet Estimate Normal
[2017-04-01] MEDS: SERTRALINE 100 MG TABLET PO SCH (10:20)
[2017-04-01] MEDS: CLOPIDOGREL 75 MG TABLET PO SCH (10:21)
[2017-04-01] MEDS: INSULIN GLARGINE 100 UNIT/ML SUBCUT SCH (10:21)
[2017-04-01] MEDS: amLODIPine 10 MG TABLET PO SCH (10:21)
[2017-04-01] MEDS: hydrALAZINE 25 MG TABLET PO SCH (10:22)
[2017-04-01] MEDS: MECLIZINE 25 MG TABLET PO SCH (10:22)
[2017-04-01] MEDS: CILOSTAZOL 100 MG TABLET PO SCH (11:27)
[2017-04-01] MEDS: ASPIRIN EC 81 MG TABLET PO SCH (11:27)
[2017-04-01] MEDS: CETIRIZINE 10 MG TABLET PO SCH (11:27)
[2017-04-01] MEDS: PANTOPRAZOLE 40 MG VIAL IV SCH ×2 (11:28→21:58)
[2017-04-01] MEDS: GABAPENTIN 50 MG/ML 30 ML/BOTTLE PO SCH ×2 (11:30→21:58)
[2017-04-01] MEDS: CALCIUM (CARBONATE)/VITAMIN D 250 MG-125 UNIT TABLET PO SCH (11:31)
[2017-04-01] MEDS: METOPROLOL SUCCINATE XL 50 MG TABLET PO SCH (12:59)
[2017-04-01] MEDS: MEROPENEM 500 MG in SYRINGE 1 EACH IV SCH (16:24)
[2017-04-01] MEDS ORDERED: VANCOMYCIN INJ 750 MG in SODIUM CHLORIDE 0.9% 150 ML IV ONE (17:00)
[2017-04-01 17:22] LABS: ABG Base Excess -3.1 MMOL/L (-2.5-2.5); ABG HCO3 23.1 MMOL/L (20-26); ABG Oxygen Saturation 89.7 % (95-100); ABG PCO2 46.2 MM HG (35-48); ABG PH 7.317 (7.35-7.45); ABG PO2 62.4 MM HG (80-95); ABG TCO2 24.5 MMOL/L (23-27)
[2017-04-01] MEDS: SIMVASTATIN 20 MG TABLET PO SCH (19:27)
[2017-04-01] MEDS: PHENYLEPHRINE DRIP 40 MG/250 ML PREMIX IV SCH (21:43)
[2017-04-01] MEDS: LEVOFLOXACIN INJ 250 MG in PREMIX 1 EACH IV SCH (21:58)
[2017-04-01] MEDS: MONTELUKAST 10 MG TABLET PO SCH (21:58)
[2017-04-02] MEDS: ALBUTEROL/IPRATROPIUM 3 ML NEB RESP TX SCH ×6 (00:19→20:31)
[2017-04-02] MEDS: CLINDAMYCIN INJ 600 MG in PREMIX 1 EACH IV SCH (03:53)
[2017-04-02] MEDS: methylPREDNISolone SOD SUC 40 MG/1 ML VIAL IV SCH (03:55)
[2017-04-02] MEDS: ACETAMINOPHEN 325 MG TABLET PO PRN (03:55)
[2017-04-02 04:04] LABS: Allen Test Positive; Pt O2 Delivery Device Ventilator
[2017-04-02 04:08] LABS: ABG HCO3 21.1 MMOL/L (20-26); ABG Oxygen Saturation 96.3 % (95-100); ABG PCO2 58.8 MM HG (35-48); ABG PH 7.227 (7.35-7.45); ABG TCO2 22.7 MMOL/L (23-27)
[2017-04-02 04:48] LABS: Basophils % 0.2 % (0.0-0.8); Hematocrit 29.8 VOL% (35.7-47.0); Immature Granulocytes % 5.3 %; Immature Granulocytes Absolute 1.16 #; Lymphocytes # 0.4 10*3/uL (1.4-4.0); Lymphocytes % 1.6 % (21.3-54.2); Mean Corpuscular HGB Conc 33.6 GM/DL (32-36); Mean Corpuscular Hemoglobin 30 PG (27-34); Mean Corpuscular Volume 90.3 FL (87-102); Mean Platelet Volume 10.9 FL (9.6-12.0); Monocytes # 0.4 10*3/uL (0.11-0.8); NRBC # 0.06 10*3/uL; Neutrophils % 90.9 % (38.7-73.9); Platelet Count 176 T/CUMM (130-400); Red Cell Distribution Width 15.4 % (9.3-17.3)
[2017-04-02 05:22] LABS: Band Neutrophils 3 % (0-10); Hypochromasia 1+; Lymphocytes 1 % (20-55); Metamyelocytes 1 %; Myelocytes 1 %; Segmented Neutrophils 93 % (50-85); Tear Drop Cells Few; Total Cells Counted 100
[2017-04-02 05:23] LABS: Microcytosis Slight; Platelet Estimate Adequate
[2017-04-02 05:32] LABS: Calcium 6.9 MG/DL (8.5-10.1); Osmolality,Calculated 279.2 MOS/KG (273-304); Potassium 4.1 MMOL/L (3.5-5.1)
[2017-04-02] MEDS: SODIUM BICARB INJ 50 MEQ in SODIUM CHLORIDE 0.45% 1,000 ML IV SCH ×3 (06:07→19:13)
[2017-04-02] MEDS: INSULIN REGULAR 100 UNIT/ML SUBCUT SCH ×3 (06:08→17:39)
[2017-04-02] MEDS: fentaNYL INJ 1,250 MCG in SODIUM CHLORIDE 0.9% 225 ML IV SCH ×3 (07:35→20:28)
[2017-04-02] MEDS: PROPOFOL 1,000 MG/100 ML BOTTLE IV SCH ×4 (08:07→21:04)
[2017-04-02] MEDS: hydrALAZINE 25 MG TABLET PO SCH (09:05)
[2017-04-02] MEDS: MECLIZINE 25 MG TABLET PO SCH (09:05)
[2017-04-02] MEDS: INSULIN GLARGINE 100 UNIT/ML SUBCUT SCH (09:05)
[2017-04-02] MEDS: SERTRALINE 100 MG TABLET PO SCH (09:05)
[2017-04-02] MEDS: amLODIPine 10 MG TABLET PO SCH (09:05)
[2017-04-02] MEDS: CILOSTAZOL 100 MG TABLET PO SCH (09:06)
[2017-04-02] MEDS: ASPIRIN EC 81 MG TABLET PO SCH (09:06)
[2017-04-02] MEDS: CETIRIZINE 10 MG TABLET PO SCH (09:06)
[2017-04-02] MEDS: GABAPENTIN 50 MG/ML 30 ML/BOTTLE PO SCH ×2 (09:06→21:42)
[2017-04-02] MEDS: CALCIUM (CARBONATE)/VITAMIN D 250 MG-125 UNIT TABLET PO SCH (09:06)
[2017-04-02] MEDS: PANTOPRAZOLE 40 MG VIAL IV SCH ×2 (09:07→21:42)
[2017-04-02] MEDS: NOREPINEPHRINE 16 MG in SODIUM CHLORIDE 0.9% 234 ML IV SCH ×2 (12:01→21:51)
[2017-04-02] MEDS: METOPROLOL SUCCINATE XL 50 MG TABLET PO SCH (12:39)
[2017-04-02] MEDS: DEXTROSE 50% 25 GM/50 ML VIAL IV PRN (12:40)
[2017-04-02] MEDS: MEROPENEM 500 MG in SYRINGE 1 EACH IV SCH (17:41)
[2017-04-02] MEDS: SIMVASTATIN 20 MG TABLET PO SCH (19:06)
[2017-04-02 19:46] LABS: Apearance,Urine CLOUDY (Clear); Bilirubin,Urine Negative (Negative); Blood, Urine Small mg/dL (Negative); Glucose,Urine (UA) Negative (Negative); Ketones,Urine Negative (Negative); Mucus,Urine Occasional /LPF (Occasional); Nitrite,Urine Negative (Negative); Protein,Urine 100 MG/DL; RBC,Urine 32 /HPF (0-4); Urine Color Amber (Yellow); Urine Specific Gravity 1.013 (1.001-1.035); Urine Urobilinogen < 2.0 EU/DL (0.2-1.0); WBC,Urine 108 /HPF (0-6)
[2017-04-02] MEDS: PHENYLEPHRINE DRIP 40 MG/250 ML PREMIX IV SCH (20:27)
[2017-04-02] MEDS: MONTELUKAST 10 MG TABLET PO SCH (21:43)
[2017-04-03] MEDS: ALBUTEROL/IPRATROPIUM 3 ML NEB RESP TX SCH ×6 (00:37→19:53)
[2017-04-03] MEDS: INSULIN REGULAR 100 UNIT/ML SUBCUT SCH ×4 (00:52→18:29)
[2017-04-03] MEDS: DEXTROSE 50% 25 GM/50 ML VIAL IV PRN ×2 (00:53→05:40)
[2017-04-03] MEDS: fentaNYL INJ 1,250 MCG in SODIUM CHLORIDE 0.9% 225 ML IV SCH ×4 (00:58→18:04)
[2017-04-03] MEDS: PROPOFOL 1,000 MG/100 ML BOTTLE IV SCH ×7 (00:59→23:00)
[2017-04-03] MEDS: VECURONIUM 10 MG VIAL IV PRN ×2 (01:52→08:02)
[2017-04-03] MEDS: SODIUM BICARB INJ 50 MEQ in SODIUM CHLORIDE 0.45% 1,000 ML IV SCH ×4 (02:57→16:46)
[2017-04-03 04:02] LABS: ABG Base Excess -1.4 MMOL/L (-2.5-2.5); ABG HCO3 25.3 MMOL/L (20-26); ABG Oxygen Saturation 93.6 % (95-100); ABG PCO2 52.2 MM HG (35-48); ABG PH 7.304 (7.35-7.45); ABG PO2 73.4 MM HG (80-95); ABG TCO2 26.9 MMOL/L (23-27); Allen Test Positive; Pt O2 Delivery Device Ventilator
[2017-04-03] MEDS ORDERED: NOREPINEPHRINE 4 MG/4 ML VIAL IV ONE ×2 (08:02→08:03)
[2017-04-03] MEDS: amLODIPine 10 MG TABLET PO SCH (08:08)
[2017-04-03] MEDS: INSULIN GLARGINE 100 UNIT/ML SUBCUT SCH (08:08)
[2017-04-03] MEDS: hydrALAZINE 25 MG TABLET PO SCH (08:08)
[2017-04-03] MEDS: MECLIZINE 25 MG TABLET PO SCH (08:08)
[2017-04-03] MEDS: NOREPINEPHRINE 16 MG in SODIUM CHLORIDE 0.9% 234 ML IV SCH ×3 (08:09→21:43)
[2017-04-03] MEDS: SERTRALINE 100 MG TABLET PO SCH (08:09)
[2017-04-03] MEDS: ASPIRIN EC 81 MG TABLET PO SCH (08:17)
[2017-04-03] MEDS: CETIRIZINE 10 MG TABLET PO SCH (08:17)
[2017-04-03] MEDS: CALCIUM (CARBONATE)/VITAMIN D 250 MG-125 UNIT TABLET PO SCH (08:17)
[2017-04-03] MEDS: methylPREDNISolone SOD SUC 40 MG/1 ML VIAL IV SCH ×2 (08:17→20:08)
[2017-04-03] MEDS: CILOSTAZOL 100 MG TABLET PO SCH (08:18)
[2017-04-03] MEDS: PANTOPRAZOLE 40 MG VIAL IV SCH ×2 (08:18→20:08)
[2017-04-03] MEDS: GABAPENTIN 50 MG/ML 30 ML/BOTTLE PO SCH ×2 (08:19→20:08)
[2017-04-03 10:09] LABS: Basophils % 0.1 % (0.0-0.8); Eosinophils # 0.8 10*3/uL (0.0-0.87); Eosinophils % 2.6 % (0.00-10.9); Hematocrit 31.6 VOL% (35.7-47.0); Hemoglobin 10.2 GM/DL (12.0-16.0); Immature Granulocytes % 5.8 %; Immature Granulocytes Absolute 1.81 #; Lymphocytes # 0.5 10*3/uL (1.4-4.0); Lymphocytes % 1.4 % (21.3-54.2); Mean Corpuscular HGB Conc 32.3 GM/DL (32-36); Mean Corpuscular Hemoglobin 30 PG (27-34); Mean Corpuscular Volume 92.1 FL (87-102); Mean Platelet Volume 11.1 FL (9.6-12.0); Monocytes # 0.3 10*3/uL (0.11-0.8); Monocytes % 1.1 % (1.7-12.7); NRBC # 0.03 10*3/uL; Neutrophils # 27.8 10*3/uL (1.4-7.4); Platelet Count 137 T/CUMM (130-400); Red Blood Count 3.43 MC/CUMM (3.8-5.5); Red Cell Distribution Width 15.6 % (9.3-17.3); White Blood Count 31.3 T/CUMM (4-12)
[2017-04-03 10:30] LABS: Band Neutrophils 1 % (0-10); Eosinophils 2 % (0-10); Hypochromasia 1+; Lymphocytes 1 % (20-55); Segmented Neutrophils 93 % (50-85); Total Cells Counted 100
[2017-04-03 10:31] LABS: Microcytosis Slight; Polychromasia Slight
[2017-04-03 10:32] LABS: Platelet Estimate Adequate
[2017-04-03 10:41] LABS: Calcium 6.5 MG/DL (8.5-10.1); Osmolality,Calculated 281.5 MOS/KG (273-304); Potassium 3.7 MMOL/L (3.5-5.1)
[2017-04-03] MEDS: METOPROLOL SUCCINATE XL 50 MG TABLET PO SCH (11:18)
[2017-04-03] MEDS ORDERED: ALBUMIN 25% 25 GM in PREMIX 1 EACH IV ONE ×2 (13:00→14:00)
[2017-04-03] MEDS: MEROPENEM 500 MG in SYRINGE 1 EACH IV SCH (15:19)
[2017-04-03] MEDS: PHENYLEPHRINE DRIP 40 MG/250 ML PREMIX IV SCH ×2 (17:09→19:25)
[2017-04-03] MEDS: SIMVASTATIN 20 MG TABLET PO SCH (18:11)
[2017-04-03] MEDS ORDERED: VANCOMYCIN INJ 750 MG in SODIUM CHLORIDE 0.9% 150 ML IV ONE (20:00)
[2017-04-03] MEDS: MONTELUKAST 10 MG TABLET PO SCH (20:08)
[2017-04-03] MEDS: ACETAMINOPHEN 325 MG TABLET PO PRN (20:08)
[2017-04-04] MEDS: ALBUTEROL/IPRATROPIUM 3 ML NEB RESP TX SCH ×5 (00:05→15:15)
[2017-04-04] MEDS: PHENYLEPHRINE INJ 80 MG in SODIUM CHLORIDE 0.9% 242 ML IV SCH ×3 (00:07→11:24)
[2017-04-04] MEDS: INSULIN REGULAR 100 UNIT/ML SUBCUT SCH ×4 (00:07→17:37)
[2017-04-04] MEDS: fentaNYL INJ 1,250 MCG in SODIUM CHLORIDE 0.9% 225 ML IV SCH ×3 (01:35→18:43)
[2017-04-04 02:59] LABS: Allen Test Positive; Pt O2 Delivery Device Ventilator
[2017-04-04] MEDS: PROPOFOL 1,000 MG/100 ML BOTTLE IV SCH ×3 (03:00→11:23)
[2017-04-04 03:02] LABS: ABG Base Excess -3.5 MMOL/L (-2.5-2.5); ABG HCO3 21.4 MMOL/L (20-26); ABG PCO2 44.7 MM HG (35-48); ABG PH 7.312 (7.35-7.45); ABG PO2 87.3 MM HG (80-95); ABG TCO2 21.1 MMOL/L (23-27)
[2017-04-04] MEDS: SODIUM BICARB INJ 50 MEQ in SODIUM CHLORIDE 0.45% 1,000 ML IV SCH (03:16)
[2017-04-04 04:39] LABS: Basophils % 0.1 % (0.0-0.8); Eosinophils # 0.1 10*3/uL (0.0-0.87); Eosinophils % 0.3 % (0.00-10.9); Hemoglobin 8.3 GM/DL (12.0-16.0); Immature Granulocytes % 4.7 %; Immature Granulocytes Absolute 1.12 #; Lymphocytes # 0.3 10*3/uL (1.4-4.0); Lymphocytes % 1.2 % (21.3-54.2); Mean Corpuscular HGB Conc 31.9 GM/DL (32-36); Mean Corpuscular Hemoglobin 31 PG (27-34); Mean Corpuscular Volume 95.6 FL (87-102); Mean Platelet Volume 11.3 FL (9.6-12.0); Monocytes # 0.3 10*3/uL (0.11-0.8); Monocytes % 1.2 % (1.7-12.7); NRBC # 0.02 10*3/uL; Neutrophils # 21.9 10*3/uL (1.4-7.4); Neutrophils % 92.5 % (38.7-73.9); Platelet Count 101 T/CUMM (130-400); Red Blood Count 2.72 MC/CUMM (3.8-5.5); Red Cell Distribution Width 15.8 % (9.3-17.3); White Blood Count 23.7 T/CUMM (4-12)
[2017-04-04 05:10] LABS: Calcium 6.9 MG/DL (8.5-10.1); Osmolality,Calculated 276.2 MOS/KG (273-304); Potassium 3.7 MMOL/L (3.5-5.1)
[2017-04-04 05:17] LABS: Eosinophils 1 % (0-10); Giant Platelets Few; Microcytosis Slight; Platelet Estimate Decreased; Segmented Neutrophils 97 % (50-85); Total Cells Counted 100
[2017-04-04] MEDS: hydrALAZINE 25 MG TABLET PO SCH (08:34)
[2017-04-04] MEDS: MECLIZINE 25 MG TABLET PO SCH (08:34)
[2017-04-04] MEDS: amLODIPine 10 MG TABLET PO SCH (08:34)
[2017-04-04] MEDS: SERTRALINE 100 MG TABLET PO SCH (08:34)
[2017-04-04] MEDS: CALCIUM (CARBONATE)/VITAMIN D 250 MG-125 UNIT TABLET PO SCH (08:34)
[2017-04-04] MEDS: INSULIN GLARGINE 100 UNIT/ML SUBCUT SCH (08:34)
[2017-04-04] MEDS: CETIRIZINE 10 MG TABLET PO SCH (08:35)
[2017-04-04] MEDS: methylPREDNISolone SOD SUC 40 MG/1 ML VIAL IV SCH (08:36)
[2017-04-04] MEDS: PANTOPRAZOLE 40 MG VIAL IV SCH (08:36)
[2017-04-04] MEDS: ASPIRIN EC 81 MG TABLET PO SCH (08:37)
[2017-04-04] MEDS: CILOSTAZOL 100 MG TABLET PO SCH (08:37)
[2017-04-04] MEDS: GABAPENTIN 50 MG/ML 30 ML/BOTTLE PO SCH (08:37)
[2017-04-04] MEDS: METOPROLOL SUCCINATE XL 50 MG TABLET PO SCH (11:26)
[2017-04-04] MEDS: MEROPENEM 500 MG in SYRINGE 1 EACH IV SCH (16:03)
[2017-04-04] MEDS: hydrALAZINE 20 MG/1 ML VIAL IV PRN (16:08)
[2017-04-04] MEDS: MORPHINE 2 MG/1 ML SYRINGE IV PRN ×2 (17:18→17:30)
[2017-04-04 18:14] VITALS: BP 194/89
[2017-04-04] MEDS: SIMVASTATIN 20 MG TABLET PO SCH (18:44)
== END 2017-04-04 17:34 | disposition expired | DRG 166 ==
LOC: N.ED 14:28 → SUATTDRO 19:35 → N.EDINP 19:35 → N.2E 20:47 → N.CC 03-24 17:23
PROVIDERS: ADMIT Internal Medicine; ATTEND Internal Medicine Nephrology